=== PATIENT | female | born 1955 | race Caucasian/White ===

== ENCOUNTER 2023-06-29 08:44 | Emergency (ER) | payer MEDICARE, MEDICAID ==
[~2023-06-29] VITALS: Ht 157.5 cm; Wt 60.2 kg
[2023-06-29 09:05] VITALS: BP 154/85; PULSE 79; RESP 18; TEMP 98.2; O2SAT 100
[2023-06-29] MEDS ORDERED: PHENAZOPYRIDINE HCL 100 MG TAB PO ONE (09:15)
[2023-06-29] MEDS ORDERED: cefTRIAXone SOD 1,000 MG VL IM ONE (09:15)
[2023-06-29 09:32] LABS: Urine Bacteria NONE SEEN /hpf (None Seen); Urine Blood 2+ /uL (Negative); Urine Clarity CLOUDY (Clear); Urine Color Yellow (Yellow); Urine Mucus FEW (None Seen); Urine Protein, UAD 2+ (Negative); Urine Urobilinogen Normal (Negative); Urine WBC 1455 /hpf (0 - 5); Urine WBC Clumps PRESENT /hpf (None Seen)
[2023-06-29] MEDS ORDERED: PHEN-922 PO (09:40)
[2023-06-29] MEDS ORDERED: BACDST PO (09:40)
== END 2023-06-29 09:43 | disposition home or self-care (01) ==
LOC: ER 08:44
DX: N39.0 Urinary tract infection, site not specified (principal); Z79.899 Other long term (current) drug therapy
CPT/HCPCS: 81001; 96372; 99283; J0696